=== PATIENT | female | born 1995 | race Caucasian/White ===

== ENCOUNTER 2017-05-07 14:23 | Emergency (ER) | payer MEDICAID ==
[2017-05-07 14:35] VITALS: BP 139/81
--- NOTE | 2017-05-07 14:42 | UC ---
Throat Pain/Nasal Benjamin HPI - HPI Summary HPI Summary: 22 female presents with complaints of sore throat and bilateral ear pressure/ discomfort that has been ongoing for the past ~2 weeks and worsening. Patient states she noticed this morning upon waking her tonsils were very enlarged and had "white spots". She has had mono and tonsillitis in the past. Denies fatigue and actually states she has had trouble sleeping. Mild intermittent cough and runny nose. Admits to headache and has been taking OTC analgesia. She has been eating and drinking. Has not taking any other medication. Denies fever/chills, nausea, vomiting, chest pain and difficulty breathing. - History of Current Complaint Chief Complaint: UCRespiratory Stated Complaint: SORE THROAT Time Seen by Provider: 05/07/17 14:36 Hx Obtained From: Patient Hx Last Menstrual Period: pt has an IUD and states not getting a menses ?: No Onset/Duration: Sudden Onset, Lasting Weeks - 1.5 Severity: Mild Pain Intensity: 5 Pain Scale Used: 0-10 Numeric Cough: Nonproductive Associated Signs & Symptoms: Positive: Dysphagia, Nasal Discharge, Other - ear pain b/l Related History: Seasonal Allergies - Allergies/Home Medications Allergies/Adverse Reactions: Allergies Allergy/AdvReac Type Severity Reaction Status Date / Time Hydrocodone Allergy Intermediate Rash Verified 05/07/17 14:35 Home Medications: Home Medications ALPRAZolam TAB* [Xanax TAB*] 0.5 mg PO TID PRN 05/07/17 [History Confirmed 05/07] Etonogestrel IMPLANT(NF) [Implanon (NF)-not available] 68 mg IMPLANT DAILY 05/07 [History Confirmed 05/07/17] PMH/Surg Hx/FS Hx/Imm Hx - Additional Past Medical History Additional PMH: Denies asthma, diabetes, HTN. Seasonal allergies. - Surgical History Surgical History: Yes Surgery Procedure, Year, and Place: nasal - Family History Known Family History: Positive: None - Social History Alcohol Use: Weekly Substance Use Type: None Smoking Status (MU): Never Smoked Tobacco - Immunization History Vaccination Up to Date: Yes Review of Systems Constitutional: Negative Skin: Negative Eyes: Negative ENT: Sore Throat, Ear Ache, Nasal Discharge Respiratory: Negative Cardiovascular: Negative Gastrointestinal: Negative Neurological: Headache All Other Systems Reviewed And Are Negative: Yes Physical Exam Triage Information Reviewed: Yes Appearance: Well-Appearing, Well-Nourished Vital Signs: Initial Vital Signs Temp 99.5 F 05/07/17 14:28 Pulse 64 05/07/17 14:28 Resp 14 05/07/17 14:28 BP 139/81 05/07/17 14:28 Pulse Ox 100 05/07/17 14:28 Vital Signs Reviewed: Yes Eyes: Positive: Conjunctiva Clear ENT: Positive: Normal ENT inspection, Hearing grossly normal, Pharyngeal erythema, TMs normal - however serous effusion behind TM b/l, Tonsillar swelling , Tonsillar exudate - b/l, Other: - no peritonsillar abscess, patent airway. Negative: TM bulging, TM dull, TM red, Trismus, Muffled/hoarse voice Dental: Positive: Cervical Lymphadenopathy - left side cervical. Negative: Percussion Tenderness @ Neck: Positive: Supple, Nontender Respiratory: Positive: Chest non-tender, Lungs clear, Normal breath sounds, No respiratory distress, No accessory muscle use. Negative: Crackles, Rhonchi, Stridor, Wheezing Cardiovascular: Positive: RRR, No Murmur, Pulses Normal, Brisk Capillary Refill Bowel Sounds: Positive: Present Musculoskeletal: Positive: Strength Intact, ROM Intact, No Edema Neurological Exam: Normal Psychological Exam: Normal Skin Exam: Normal Throat Pain/Nasal Course/Dx - Course Course Of Treatment: strep culture obtained and negative. due to PE findings, HPI and length of symptoms patient will be treated with antibiotic at this time. also recommended continuing symptomatic relief, chloraseptic spray, salt water gargles and NSAIDs. Also to start Xyzal or antihistamine to help with serous otitis media and allergy congestion. Aware of worsening signs and symptoms to watch out for. Follow up with PCP. Fluids and rest. - Differential Dx/Diagnosis Differential Diagnosis/HQI/PQRI: Mononucleosis, Otitis Media, Pharyngitis, Sinusitis, Tonsillitis, URI Provider Diagnoses: tonsillitis, serous otitis media b/l ears Discharge - Discharge Plan Condition: Stable Disposition: HOME Prescriptions: Amoxicillin CAP* [Amoxicillin 500 MG CAP*] 500 mg PO Q12H #20 cap Patient Education Materials: Tonsillitis (ED), Serous Otitis Media (ED) Referrals: [facility] [Outside] Additional Instructions: Take prescribed antibiotics as directed. Recommend taking probiotic pill or eating khmer yogurt in between doses of taking antibiotic to help replenish good bacteria and avoid yeast infections. Chloraseptic spray to relieve sore throat. Gargle with salt water multiple times daily. Xyzal antihistamine at bedtime to help with fluid behind ear drums, congestion and allergies. Continue ibuprofen/aleve for discomfort and inflammation. Increase fluid intake and get plenty of rest. If symptoms do not improve or worsen please seek medical attention. Follow up with PCP.
[2017-05-07] MEDS ORDERED: Ibuprofen TAB* 400 MG PO ONE (14:58)
== END 2017-05-07 15:29 | disposition home or self-care (01) ==
LOC: UCCORT 14:23
DX: J03.90 Acute tonsillitis, unspecified (principal); H65.93 Unspecified nonsuppurative otitis media, bilateral; Z88.5 Allergy status to narcotic agent
CPT/HCPCS: 87651; 99202; A9270-GY; G0463